=== PATIENT | female | born 1965 | race Caucasian/White ===

== ENCOUNTER 2017-05-23 18:23 | Emergency (ER) | payer MEDICAID ==
[2017-05-23 18:33] VITALS: TEMP 98.2
--- NOTE | 2017-05-23 18:37 | EDPHY ---
H & P Stated Complaint: cough/congestion/fever x 2 weeks Time Seen by Provider: 05/23/17 18:37 HPI/ROS: CHIEF COMPLAINT: Cough and shortness of breath HISTORY OF PRESENT ILLNESS: The patient is a 51 y/o female who complains of shortness of breath and a cough. She is currently homeless and living at a "home sikh". She also notes her lungs are easily irritated by any type of smoke and that she is exposed to secondhand smoke. She also notes that she has been vomiting, dizzy, and had a subjective fever. Her symptoms are exacerbated by moving around. The patient notes that her breathing feels tight right now. She took 500mg of Tylenol at 14: 00, 4.5 hours ago. She believes she has a fractured right hip and does not know if her aches are related to her hip pain or if there are new aches. She has not had a flu shot. REVIEW OF SYSTEMS: A ten point review of systems was performed and is negative with the exception of the items mentioned in the HPI. Past medical history: Renal failure Past surgical history: Removed one kidney Family history: Noncontributory Social history: Homeless Served in the [employer] General Appearance: Alert. Vital signs reviewed. BP 134/78. Eyes: Pupils equal and round, no conjunctival injection, no discharge. Anicteric. ENT: Ear: Left tympanic membrane obscured by cerumen. Mouth: Mucous membranes are moist, no oropharyngeal erythema or edema. Neck: No lymphadenopathy, supple. Respiratory: Lungs are clear to auscultation; no wheezes, rales, or rhonchi. Cardiovascular: Regular rate and rhythm; no murmur, rub, or gallop. Gastrointestinal: Abdomen is soft and nontender, no masses or organomegaly, bowel sounds normal. Skin: Warm and dry, no rashes on exposed skin, normal color. Back: Nontender to palpation over the thoracolumbar spine. No CVAT. Extremities: No lower extremity edema, no calf tenderness or swelling. Neurological: Alert and oriented. Moving all four extremities easily and equally. Psychiatric: Normal affect. - Personal History LMP (Females 10-55): Now - Medical/Surgical History Hx Asthma: No Hx Chronic Respiratory Disease: No Hx Diabetes: No Hx Cardiac Disease: No Hx Renal Disease: Yes Hx Cirrhosis: No Hx Alcoholism: No Hx HIV/AIDS: No Hx Splenectomy or Spleen Trauma: No Other PMH: renal failure removed one kidney - Social History Smoking Status: Never smoked Constitutional: Initial Vital Signs Temperature (C) 36.8 C 05/23/17 18:28 Heart Rate 85 05/23/17 18:28 Respiratory Rate 20 05/23/17 18:28 Blood Pressure 134/78 H 05/23/17 18:28 O2 Sat (%) 97 05/23/17 18:28 O2 Delivery Mode Room Air Allergies/Adverse Reactions: doxycycline Allergy (Verified 05/23/17 18:28) Home Medications: Medication Instructions Recorded NK [No Known Home Meds] 05/23/17 Medical Decision Making ED Course/Re-evaluation: The patient is a 51 y/o female who presents with dyspnea. Her lungs are clear to auscultation. Plan on a DuoNeb treatment. She does not have signs of symptoms of pneumonia or influenza. 1952: Reassessed patient, she is feeling better. She spoke at some length with me about her current living situation and difficulty accessing medical care. A director of casework services referral has been made. I am diagnosing bronchitis tonight. She will be given an inhaler to take home and a referral for an outpatient follow up with her primary care provider. Return precautions discussed; patient is comfortable with this plan. Differential Diagnosis: I considered a differential diagnosis including but not limited to pulmonary infectious process, COPD, asthma, pulmonary embolus and congestive heart failure. - Data Points Medications Given: Discontinued Medications Albuterol Sulfate (Proventil Inh Prepack) 1 mdi TAKEHOME EDNOW ONE Stop: 05/23/17 19:58 Last Admin: 05/23/17 20:04 Dose: 1 mdi Albuterol/Ipratropium (Duoneb) 3 ml IH EDNOW ONE Stop: 05/23/17 18:50 Last Admin: 05/23/17 18:56 Dose: 3 ml Departure - Departure Disposition: Home, Routine, Self-Care Clinical Impression: Acute bronchitis Qualifiers: Bronchitis organism: other organism Qualified Code(s): J20.8 - Acute bronchitis due to other specified organisms Condition: Good Instructions: Albuterol (By breathing), Bronchiolitis (ED) Additional Instructions: 1. Use your inhaler as prescribed. 2. Follow up with the [facility] or your primary care provider for unimproved symptoms. 3. Return to the ED for high fever, severe headache or neck pain, difficulty breathing, abdominal pain or other worsening of condition. Referrals: JANIE BURTON [Other] - As per Instructions Report Scribed for: Violet Flynn Report Scribed by: Leatha Jones Date of Report: 05/23/17 Time of Report: 18:39 Physician Review and Approval Statement: 05/23/17 18:37 Portions of this note were transcribed by the certified medical technician. I, Dr. Violet Flynn, personally performed the history, physical exam, and medical decision- making; and confirmed the accuracy of the information in the transcribed note.
[2017-05-23] MEDS ORDERED: IPRATROPIUM/ALBUTEROL 3 ML DEYVIAL IH ONE (18:49)
[2017-05-23 19:21] VITALS: BP 124/76; PULSE 84; RESP 16; O2SAT 95
[2017-05-23] MEDS ORDERED: ALBUTEROL INH PREPACK MDI TAKEHOME ONE (19:57)
== END 2017-05-23 20:20 | disposition home or self-care (01) ==
DX: J20.8 Acute bronchitis due to other specified organisms (principal)